=== PATIENT | male | born 1950 | race Caucasian/White ===

== ENCOUNTER → 2017-02-27 | Outpatient (CLI) | payer MEDICARE, OTHER ==
[2017-02-27 11:33] LABS: CHLORIDE,CL 107 mmol/L (98-110); SODIUM,NA 140 mmol/L (136-146)
== END ==
LOC: MW.CHFP 10:21
PROVIDERS: ATTEND Student in an Organized Health Care Education/Training Program
DX: E78.5 Hyperlipidemia, unspecified (principal); R73.9 Hyperglycemia, unspecified; I10 Essential (primary) hypertension; F32.9 Major depressive disorder, single episode, unspecified; Z72.0 Tobacco use
CPT/HCPCS: 36415; 80053; 80061; G0463

== ENCOUNTER 2018-11-06 11:20 | Emergency (ER) | payer MEDICARE, OTHER ==
--- NOTE | 2018-11-06 11:38 | EDM.PDOC ---
ED HPI GENERAL MEDICAL PROBLEM - General Chief Complaint: Upper Extremity Injury/Pain Stated Complaint: PAIN IN LEFT ARM Time Seen by Provider: 11/06/18 11:34 Source of Information: Reports: Patient History Limitations: Reports: No Limitations - History of Present Illness INITIAL COMMENTS - FREE TEXT/NARRATIVE: HISTORY AND PHYSICAL: History of present illness: Patient is a 68-year-old male who presents to the emergency room with complaints of pain to his left shoulder and arm. States that he has some pain at the cervical spine with flexion downward but has a constant pain that starts in the left scapula down the arm into his hand. Denies any injury, trauma or falls. Does have full range of motion of the shoulder. He denies any fever, chills, chest pain, shortness of breath or cough. Denies any headache, change in vision or diaphoresis. Denies any abdominal pain, nausea , vomiting, diarrhea, constipation or dysuria. He has been eating and drinking appropriately. Review of systems: As per history of present illness and below otherwise all systems reviewed and negative. Past medical history: As per history of present illness and as reviewed below otherwise noncontributory. Surgical history: As per history of present illness and as reviewed below otherwise noncontributory. Social history: See social history for further information Family history: As per history of present illness and as reviewed below otherwise noncontributory. Physical exam: General: Well-developed and well-nourished 68-year-old male. Alert and oriented. Nontoxic appearing and in no acute distress. HEENT: Atraumatic, normocephalic, pupils equal and reactive bilaterally, negative for conjunctival pallor or scleral icterus, mucous membranes moist, TMs normal bilaterally, throat clear, neck supple, nontender, trachea midline. No drooling or trismus noted. No meningeal signs. No hot potato voice noted. Lungs: Clear to auscultation, breath sounds equal bilaterally, chest nontender. Heart: S1S2, regular rate and rhythm without overt murmur Abdomen: Soft, nondistended, nontender. Negative for masses or hepatosplenomegaly. Negative for costovertebral tenderness. Pelvis: Stable nontender. Genitourinary: Deferred. Rectal: Deferred. Skin: Intact, warm, dry. No lesions or rashes noted. Extremities: Atraumatic, moves all per self, negative for cords or calf pain. Neurovascular unremarkable. Neuro: Awake, alert, oriented. Cranial nerves II through XII unremarkable. Cerebellum unremarkable. Motor and sensory unremarkable throughout. Exam nonfocal. Notes: Diagnostics: CBC, CMP, troponin, EKG, one view chest, CT cervical spine Therapeutics: Solu-Medrol Prescription: Medrol Dosepak Celebrex Flexeril Impression: Left arm pain Possible left shoulder impingement Plan: 1. Please take the medications as directed and as needed. 2. Follow-up with the orthopedic provider 3. Return to the ED as needed and as discussed. Definitive disposition and diagnosis as appropriate pending reevaluation and review of above. Left Finger-Middle Pain Score (Numeric/FACES): 1 Left Arm Pain Score (Numeric/FACES): 3 - Related Data Allergies Allergy/AdvReac Type Severity Reaction Status Date / Time No Known Allergies Allergy Verified 11/06/18 11:45 Home Meds: Home Meds Albuterol/Ipratropium [Combivent Respimat] 2 puff INH ASDIRECTED PRN 11/06/18 [ History] Aspirin [Adult Aspirin] 1 tab PO DAILY 11/06/18 [History] Desvenlafaxine Succinate [Desvenlafaxine Succinate ER] 50 mg PO DAILY 11/06/18 [ History] Fluticasone/Salmeterol [Advair 250-50 Diskus] 2 puff INH DAILY 11/06/18 [History ] Lisinopril/Hydrochlorothiazide [Lisinopril-Hctz 20-25 mg Tab] 1 tab PO DAILY [History] Montelukast [Singulair] 10 mg PO DAILY 11/06/18 [History] amLODIPine Besylate [Amlodipine Besylate] 1 tab PO DAILY 11/06/18 [History] atorvaSTATin [Lipitor] 1 tab PO DAILY 11/06/18 [History] Review of Systems - Review of Systems Review Of Systems: ROS reveals no pertinent complaints other than HPI. ED EXAM, GENERAL - Physical Exam Exam: See Below (See dictation) Course - Vital Signs Last Recorded V/S: Last Vital Signs Temp 97.8 F 11/06/18 11:56 Pulse 81 11/06/18 11:56 Resp 17 11/06/18 11:56 BP 137/69 11/06/18 11:56 Pulse Ox 96 11/06/18 11:56 - Orders/Labs/Meds Orders: Active Orders 24 hr Category Date Time Status EKG Documentation Completion [RC] STAT Care 11/06/18 11:50 Active Labs: Laboratory Tests 11/06/18 11/06/18 Range/Units 11:59 11:59 WBC 10.33 (4.0-11.0) K/uL RBC 4.96 (4.50-5.90) M/uL Hgb 14.8 (13.0-17.0) g/dL Hct 43.3 (38.0-50.0) % MCV 87.3 (80.0-98.0) fL MCH 29.8 (27.0-32.0) pg MCHC 34.2 (31.0-37.0) g/dL RDW Std Deviation 44.5 (28.0-62.0) fl RDW Coeff of Saira 14 (11.0-15.0) % Plt Count 221 (150-400) K/uL MPV 11.30 (7.40-12.00) fL Neut % (Auto) 67.1 (48.0-80.0) % Lymph % (Auto) 18.4 (16.0-40.0) % [place] % (Auto) 11.4 (0.0-15.0) % Eos % (Auto) 2.8 (0.0-7.0) % Baso % (Auto) 0.3 (0.0-1.5) % Neut # (Auto) 6.9 H (1.4-5.7) K/uL Lymph # (Auto) 1.9 (0.6-2.4) K/uL [place] # (Auto) 1.2 H (0.0-0.8) K/uL Eos # (Auto) 0.3 (0.0-0.7) K/uL Baso # (Auto) 0.0 (0.0-0.1) K/uL Nucleated RBC % 0.0 /100WBC Nucleated RBCs # 0 K/uL Sodium 139 (136-148) mmol/L Potassium 3.4 L (3.5-5.1) mmol/L Chloride 103 (98-107) mmol/L Carbon Dioxide 28.0 (21.0-32.0) mmol/L BUN 19 H (7.0-18.0) mg/dL Creatinine 1.1 (0.8-1.3) mg/dL Est Cr Clr Drug Dosing 65.17 mL/min Estimated GFR (MDRD) > 60.0 ml/min Glucose 108 H (74-106) mg/dL Calcium 9.3 (8.5-10.1) mg/dL Total Bilirubin 0.8 (0.2-1.0) mg/dL AST 22 (15-37) IU/L ALT 45 (14-63) IU/L Alkaline Phosphatase 47 (46-116) U/L Troponin I < 0.050 (0.000-0.056) ng/mL Total Protein 7.5 (6.4-8.2) g/dL Albumin 3.6 (3.4-5.0) g/dL Globulin 3.9 (2.6-4.0) g/dL Albumin/Globulin Ratio 0.9 (0.9-1.6) Meds: Medications Discontinued Medications Generic Name Dose Route Start Last Admin Trade Name Poncho PRN Reason Stop Dose Admin Methylprednisolone Sodium Succinate 125 mg 11/06/18 11:50 11/06/18 11:56 Solu-Medrol IVPUSH 11/06/18 11:51 Not Given ONETIME ONE Methylprednisolone Sodium Succinate 125 mg 11/06/18 11:53 11/06/18 12:09 Solu-Medrol IM 11/06/18 11:54 125 mg ONETIME ONE Administration Departure - Departure Time of Disposition: 12:59 Disposition: Home, Self-Care 01 Clinical Impression: Impingement syndrome, shoulder, left, Left arm pain - Discharge Information Instructions: Shoulder Impingement Syndrome Referrals: Anup Mcintosh MD [Primary Care Provider] - Forms: ED Department Discharge Additional Instructions: The following information is given to patients seen in the emergency department who are being discharged to home. This information is to outline your options for follow-up care. We provide all patients seen in our emergency department with a follow-up referral. The need for follow-up, as well as the timing and circumstances, are variable depending upon the specifics of your emergency department visit. If you don't have a primary care physician on staff, we will provide you with a referral. We always advise you to contact your personal physician following an emergency department visit to inform them of the circumstance of the visit and for follow-up with them and/or the need for any referrals to a consulting specialist. The emergency department will also refer you to a specialist when appropriate. This referral assures that you have the opportunity for follow-up care with a specialist. All of these measure are taken in an effort to provide you with optimal care, which includes your follow-up. Under all circumstances we always encourage you to contact your private physician who remains a resource for coordinating your care. When calling for follow-up care, please make the office aware that this follow-up is from your recent emergency room visit. If for any reason you are refused follow-up, please contact the [facility] Emergency Department at and asked to speak to the emergency department charge nurse. [facility] [address] [place] [id number] [address] [facility] [address] [place] [address] [address] [place] [address] 1. Please take the medications as directed and as needed. 2. Follow-up with the orthopedic provider 3. Return to the ED as needed and as discussed. - My Orders Last 24 Hours: My Active Orders 11/06/18 11:50 EKG Documentation Completion [RC] STAT - Assessment/Plan Last 24 Hours: My Active Orders 11/06/18 11:50 EKG Documentation Completion [RC] STAT
[2018-11-06] MEDS ORDERED: methylPREDNISolone Sodium Succinate 125 MG/2 ML SDV IVPUSH ONE (11:50)
[2018-11-06] MEDS ORDERED: methylPREDNISolone Sodium Succinate 125 MG/2 ML SDV IM ONE (11:53)
[2018-11-06 12:39] LABS: CHLORIDE,CL 103 mmol/L (98-107); SODIUM,NA 139 mmol/L (136-148)
--- NOTE | 2018-11-06 12:50 | CR ---
EXAMINATION: Portable chest radiograph. HISTORY: Left arm pain. FINDINGS: The trachea is midline. The cardiomediastinal silhouette is within normal limits. No pulmonary infiltrates, effusions or pneumothorax. Mild left base atelectasis. Osseous structures appear unremarkable. IMPRESSION: No acute cardiopulmonary process.
--- NOTE | 2018-11-06 13:05 | CT ---
EXAMINATION: CT cervical spine HISTORY: Left arm pain COMPARISON: None TECHNIQUE: Axial CT imaging obtained through the cervical spine without contrast. Coronal and sagittal reconstructions obtained. FINDINGS: The cervical spinal alignment is normal. The vertebral body heights appear well maintained. Mild disc space narrowing at multiple levels within the cervical spine. Uncovertebral hypertrophy is noted bilaterally from C3 to T1. There is no fracture or acute osseous abnormality. Bone mineralization is normal. Carotid artery calcifications are noted. Lung apices are clear. IMPRESSION: 1. Mild degenerative changes without acute findings noted within the cervical spine. 2. Mild carotid artery calcifications.
== END 2018-11-06 13:25 | disposition home or self-care (01) ==
LOC: MW.ED 11:20
DX: M75.42 Impingement syndrome of left shoulder (principal); Z79.899 Other long term (current) drug therapy
CPT/HCPCS: 36415; 71045; 72125; 80053; 84484; 85025; 93005; 96372; 99284; J2930; 99283

== ENCOUNTER 2020-07-20 17:47 | Emergency (ER) | payer MEDICARE, OTHER ==
[2020-07-20] MEDS ORDERED: Diphtheria,Pertussis(Acell),Tetanus Vaccine 0.5 ML Syringe IM ONE (18:01)
[2020-07-20] MEDS ORDERED: Acetaminophen/oxyCODONE 325-10 MG Tab PO ONE (18:01)
--- NOTE | 2020-07-20 18:02 | EDM.PDOC ---
ED HPI GENERAL MEDICAL PROBLEM - General Chief Complaint: Laceration Stated Complaint: LEFT HAND INJURY Time Seen by Provider: 07/20/20 17:56 Source of Information: Reports: Patient History Limitations: Reports: No Limitations - History of Present Illness INITIAL COMMENTS - FREE TEXT/NARRATIVE: HISTORY AND PHYSICAL: History of present illness: Patient is a 69-year-old female who presents to the emergency room with complaints of laceration and skin avulsion of the left index and middle finger. He states he was using a saw when his hand got in the way of the blade. He has a skin avulsion to the palmar surface of the left index finger. He has a laceration on the third left digit. He denies any other extremity involvement. He offers no systemic complaints. Unsure of his last tetanus update. Review of systems: As per history of present illness and below otherwise all systems reviewed and negative. Past medical history: As per history of present illness and as reviewed below otherwise noncontributory. Surgical history: As per history of present illness and as reviewed below otherwise noncontributory. Social history: See social history for further information Family history: As per history of present illness and as reviewed below otherwise noncontributory. Physical exam: General: Well developed and well nourished. Alert and orientated x 3. Nontoxic in appearance and in no acute distress. Vital signs are stable and have been reviewed by me. Nursing notes were reviewed. HEENT: Atraumatic, normocephalic, pupils equal and reactive bilaterally, neg ative for conjunctival pallor or scleral icterus, mucous membranes moist, TMs normal bilaterally, throat clear, neck supple, nontender, trachea midline. No drooling or trismus noted. No meningeal signs. No hot potato voice noted. Lungs: Clear to auscultation, breath sounds equal bilaterally, chest nontender. Normal work of breathing, no accessory muscles used. Heart: S1S2, regular rate and rhythm without overt murmur Abdomen: Soft, nondistended, nontender. Negative for masses or hepatosplenomegaly. Negative for costovertebral tenderness. Skin: 2.5 cm laceration across palmar surface of the left mid 3rd digit; does not appear to have tendon involvement. 3 cm skin avulsion across distal palmar surface of left index finger. There is obvious tear of the tendon, although he is able to flex and extend and DIP/MIP/PIP joint. These do not involve the nailbed. +CMS and cap refill less than 3 seconds. Otherwise skin is intact, warm, dry. No lesions or rashes noted. Hematologic: No petechiae or purpra. Mucosa appropriate color and normal nail bed color and refill. Extremities: Moves all extremities per self without difficulty or deficits, see SKIN for details. Neurovascular unremarkable. Neuro: Awake, alert, oriented. Cranial nerves II through XII unremarkable. Cerebellum unremarkable. Motor and sensory unremarkable throughout. Exam nonfocal. Psychiatric: Mood and affect are appropriate. Normal thought process. Answering questions appropriately. Notes: X-ray shows no fractures, dislocations or bony abnormalities. 1% lidocaine was used for digital block of the left second and third digits. The laceration/avulsed skin was thoroughly cleansed with chlorhexidine and irrigated with copious amounts of wound wash. The skin avulsion on the left second digit has no way of approximating any of the skin. The laceration on the third left digit received 5-0, #5 interrupted sutures. Patient tolerated well. I spoke with Dr. Rizvi, hand surgeon on-call at [facility] in [place]. He was able to view the images. He will see this patient tomorrow at 9 AM in his office. He did request that I approximate the skin avulsion area, I did inform him that that is not possible with the remaining skin that is left at the site. Bacitracin/Vaseline nonstick tube gauze dressing applied. Keflex given here. I have spoken with the patient/caregiver and discussed today's findings, in addition to providing specific details for plan of care. Reassessment at the time of disposition demonstrates that the patient is in no acute distress. The patient has remained stable throughout the entire ED visit and is without objective evidence for acute process requiring urgent intervention or hospitalization. The patient is stable for discharge, counseling was provided and we discussed in great detail signs and symptoms that would prompt them to return to the Emergency Department. Medication, follow up and supportive care measures were reviewed and discussed. Voices understanding and is agreeable to plan of care. Denies any further questions or concerns at this time. Diagnostics: Finger x-ray Therapeutics: Percocet, Keflex, Lidocaine, Wound care, bacitracin bulky non-stick dressing Prescription: Percocet, Keflex Impression: Flexor tendon injury Skin avulsion Laceration Hand Injury Plan: 1. Keep the area clean and dry. Continue to monitor for signs of infection. Please take the antibiotic as prescribed 2. Tylenol and/or ibuprofen as needed for pain management. You can use the Percocet, 1-2 tabs every 4 hours as needed. Please be aware that this medication does cause drowsiness so do not take it while driving or needing to be functioning outside of the house 3. Dr Rizvi wants to see you tomorrow morning at 9am. DO NOT EAT OR DRINK after midnight tonight. 4. Return to the ED as needed and as discussed. Definitive disposition and diagnosis as appropriate pending reevaluation and review of above. left fingers Pain Score (Numeric/FACES): 5 - Related Data Allergies Allergy/AdvReac Type Severity Reaction Status Date / Time No Known Allergies Allergy Verified 07/20/20 18:05 Home Meds: Home Meds Albuterol/Ipratropium [Combivent Respimat] 2 puff INH ASDIRECTED PRN 11/06/18 [History] Aspirin [Adult Aspirin] 1 tab PO DAILY 11/06/18 [History] Desvenlafaxine Succinate [Desvenlafaxine Succinate ER] 50 mg PO DAILY 11/06/18 [History] Fluticasone Propion/Salmeterol [Advair 250-50 Diskus] 2 puff INH DAILY 11/06/18 [History] Lisinopril/Hydrochlorothiazide [Lisinopril-Hctz 20-25 mg Tab] 1 tab PO DAILY 11/06/18 [History] Montelukast [Singulair] 10 mg PO DAILY 11/06/18 [History] amLODIPine Besylate [Amlodipine Besylate] 1 tab PO DAILY 11/06/18 [History] atorvaSTATin [Lipitor] 1 tab PO DAILY 11/06/18 [History] Acetaminophen/oxyCODONE [Percocet 325-5 MG] 1 each PO Q4HR PRN #20 tab 07/20/20 [Rx] cephALEXin [Keflex] 1 tab PO TID 7 Days #21 cap 07/20/20 [Rx] Past Medical History Cardiovascular History: Reports: High Cholesterol, Hypertension Other Respiratory History: flare up of breathing problems with allergies in the fall and spring Social & Family History - Family History Family Medical History: Noncontributory ED ROS GENERAL - Review of Systems Review Of Systems: Comprehensive ROS is negative, except as noted in HPI. ED EXAM, SKIN/RASH Exam: See Below (See dictation) ED SKIN PROCEDURES - Laceration/Wound Repair Left 2nd digit Appearance: Subcutaneous, Irregular Distal NVT: Neuro & Vascular Intact, Other (Flexor tendon injury) Anesthetic Type: Digital Local Anesthesia - Lidocaine (Xylocaine): 1% Plain Local Anesthetic Volume: 4cc Skin Prep: Chlorhexidine (Hibiciens), Saline, Sterile Drape Saline Irrigation (cc's): 500 (x2) Exploration/Debridement/Repair: Wound Explored, In a Bloodless Field, Explored to Base, No Foreign Material Found, Other (Unable to close due to skin avulsion) Closed with: Other (Unable to close; bacitracin bulky gauze dressing/tube gauze) Lac/Wound length In cm: 3 (in diameter) Drain Placement: No Sterile Dressing Applied: Provider Tetanus Status Addressed: Yes Complications: No Progress/Comments: Spoke with Dr Rizvi about this patient for recommendations. Unable to approximate any of the avulsed tissue. He has follow up with Dmitri tomorrow morning at 9am. Left 3rd digit Appearance: Subcutaneous, Irregular Distal NVT: Neuro & Vascular Intact, No Tendon Injury Anesthetic Type: Digital Local Anesthetic Volume: 4cc Skin Prep: Chlorhexidine (Hibiciens), Saline, Sterile Drape Saline Irrigation (cc's): 500 (x 2) Exploration/Debridement/Repair: Wound Explored, In a Bloodless Field, Explored to Base, No Foreign Material Found Closed with: Sutures Lac/Wound length In cm: 2.5 Suture Size: 4-0 # of Sutures: 5 Suture Type: Nylon, Interrupted, Simple Drain Placement: No Sterile Dressing Applied: Provider Tetanus Status Addressed: Yes Complications: No Course - Vital Signs Last Recorded V/S: Last Vital Signs Temp Pulse 99 07/20/20 17:57 Resp 20 07/20/20 17:57 BP 135/70 07/20/20 17:57 Pulse Ox 97 07/20/20 17:57 - Orders/Labs/Meds Orders: Active Orders 24 hr Category Date Time Status Communication Order [RC] STAT Care 07/20/20 18:44 Ordered Vaccines to be Administered [RC] PER UNIT ROUTINE Care 07/20/20 18:01 Active Meds: Medications Discontinued Medications Generic Name Dose Route Start Last Admin Trade Name Poncho PRN Reason Stop Dose Admin Bacitracin 1 dose 07/20/20 19:26 07/20/20 19:32 Bacitracin Oint 1 Gm TOP 07/20/20 19:27 1 dose ONETIME ONE Administration Bacitracin Confirm 07/20/20 19:26 Bacitracin Oint 1 Gm Administered 07/20/20 19:27 Dose 1 dose .ROUTE .STK-MED ONE Cefazolin Sodium 1 gm 07/20/20 18:34 Ancef IM 07/20/20 18:35 ONETIME ONE Cephalexin 500 mg 07/20/20 19:08 07/20/20 19:35 Keflex PO 07/20/20 19:09 500 mg ONETIME ONE Administration Diphtheria/Tetanus/Acell Pertussis 0.5 ml 07/20/20 18:01 07/20/20 18:23 Adacel IM 07/20/20 18:02 0.5 ml .ONCE ONE Administration Lidocaine HCl 5 ml 07/20/20 18:01 07/20/20 18:23 Xylocaine-Mpf 1% INJECT 07/20/20 18:02 5 ml ONETIME ONE Administration Lidocaine HCl 5 ml 07/20/20 18:27 07/20/20 18:28 Xylocaine-Mpf 1% INJECT 07/20/20 18:28 5 ml ONETIME ONE Administration Lidocaine HCl Confirm 07/20/20 18:25 07/20/20 18:30 Xylocaine-Mpf 1% Administered 07/20/20 18:26 Not Given Dose 5 ml .ROUTE .STK-MED ONE Oxycodone/Acetaminophen 1 tab 07/20/20 18:01 07/20/20 18:22 Percocet 325-10 Mg PO 07/20/20 18:02 1 tab ONETIME ONE Administration Departure - Departure Time of Disposition: 19:57 Disposition: Home, Self-Care 01 Clinical Impression: Skin avulsion, Laceration Finger injury Qualifiers: Encounter type: initial encounter Laterality: left Qualified Code(s): S69.92XA - Unspecified injury of left wrist, hand and finger(s), initial encounter Injury of flexor tendon of left hand Qualifiers: Encounter type: initial encounter Qualified Code(s): S66.802A - Unspecified injury of other specified muscles, fascia and tendons at wrist and hand level, left hand, initial encounter - Discharge Information Prescriptions: cephALEXin [Keflex] 1 tab PO TID 7 Days #21 cap Acetaminophen/oxyCODONE [Percocet 325-5 MG] 1 each PO Q4HR PRN #20 tab PRN Reason: Pain Instructions: Laceration Care, Adult, [id number], Pain Medicine Instructions, [id number], Sutures, Vanzant, or Adhesive Wound Closure, [id number], Nail Bed Injury, [id number] Referrals: Anup Mcintosh MD [Primary Care Provider] - Forms: ED Department Discharge Additional Instructions: The following information is given to patients seen in the emergency department who are being discharged to home. This information is to outline your options for follow-up care. We provide all patients seen in our emergency department with a follow-up referral. The need for follow-up, as well as the timing and circumstances, are variable depending upon the specifics of your emergency department visit. If you don't have a primary care physician on staff, we will provide you with a referral. We always advise you to contact your personal physician following an emergency department visit to inform them of the circumstance of the visit and for follow-up with them and/or the need for any referrals to a consulting specialist. The emergency department will also refer you to a specialist when appropriate. This referral assures that you have the opportunity for follow-up care with a specialist. All of these measure are taken in an effort to provide you with optimal care, which includes your follow-up. Under all circumstances we always encourage you to contact your private physician who remains a resource for coordinating your care. When calling for follow-up care, please make the office aware that this follow-up is from your recent emergency room visit. If for any reason you are refused follow-up, please contact the [facility] Emergency Department at and asked to speak to the emergency department charge nurse. Dr Rizvi (Hand Surgeon) [address] (located on the 3rd Floor) [place], [place] [address] Thank you for choosing the [facility] emergency department in [place] for your medical needs today. It was a pleasure caring for you. Today you were seen in the emergency department for finger injury. 1. Keep the area clean and dry. Continue to monitor for signs of infection. Please take the antibiotic as prescribed 2. Tylenol and/or ibuprofen as needed for pain management. You can use the Percocet, 1-2 tabs every 4 hours as needed. Please be aware that this medication does cause drowsiness so do not take it while driving or needing to be functioning outside of the house 3. Dr Rizvi wants to see you tomorrow morning at 9am in [place]. DO NOT EAT OR DRINK after midnight tonight. 4. Return to the ED as needed and as discussed. Sepsis Event Note (ED) - Evaluation Sepsis Screening Result: No Definite Risk - Focused Exam Vital Signs: Vital Signs Pulse Resp BP Pulse Ox 07/20/20 17:57 99 20 135/70 97 - My Orders Last 24 Hours: My Active Orders 07/20/20 18:01 Vaccines to be Administered [RC] PER UNIT ROUTINE 07/20/20 18:44 Communication Order [RC] STAT - Assessment/Plan Last 24 Hours: My Active Orders 07/20/20 18:01 Vaccines to be Administered [RC] PER UNIT ROUTINE 07/20/20 18:44 Communication Order [RC] STAT
[2020-07-20] MEDS ORDERED: ceFAZolin 1 GM Vial IM ONE (18:34)
--- NOTE | 2020-07-20 18:49 | CR ---
INDICATION: Laceration to 2nd and 3rd fingers left hand from table saw TECHNIQUE: Finger radiograph 3 views left 2nd COMPARISON: None FINDINGS: Bone: No acute fractures or aggressive bone lesions are identified. A portion of the 4th proximal phalanx is obscured by a metallic ring. Joint: The metacarpophalangeal and interphalangeal joints are normal in appearance. Soft tissue: Large soft tissue laceration is seen along the palmar aspect of the distal 2nd digit. No radiopaque foreign bodies are seen. IMPRESSION: 1. No acute osseous injuries or abnormalities are noted. Dictated by Baudilio Hidalgo MD @ 07/20/2020 6:47:43 PM Dictated by: Baudilio Hidalgo MD @ 07/20/2020 18:47:48 (Electronically Signed)
[2020-07-20] MEDS ORDERED: Cephalexin 500 MG Cap PO ONE (19:08)
[2020-07-20] MEDS ORDERED: Bacitracin Oint 1 GM U/D Packet ONE (19:26)
[2020-07-20] MEDS ORDERED: Bacitracin Oint 1 GM U/D Packet TOP ONE (19:26)
== END 2020-07-20 19:52 | disposition home or self-care (01) ==
LOC: MW.ED 17:47
DX: S56.122A Laceration of flexor muscle, fascia and tendon of left index finger at forearm level, initial encounter (principal); S61.213A Laceration without foreign body of left middle finger without damage to nail, initial encounter; E78.00 Pure hypercholesterolemia, unspecified; I10 Essential (primary) hypertension; Z79.82 Long term (current) use of aspirin; Z23 Encounter for immunization; W27.0XXA Contact with workbench tool, initial encounter
CPT/HCPCS: 12002; 73140; 90471; 90715; 99282; A9270; J2001; 12001; 64450; 99283

== ENCOUNTER 2023-11-09 11:03 | Emergency (ER) | payer MEDICARE, OTHER ==
[2023-11-09 11:44] LABS: BASOPHILS ABSOLUTE AUTO 0.04 K/uL (0.00-0.20); BASOPHILS PERCENT AUTO 0.5 % (0.0-1.0); EOSINOPHILS ABSOLUTE AUTO 0.34 K/uL (0.00-0.45); EOSINOPHILS PERCENT AUTO 4.4 % (0.0-6.0); HEMATOCRIT 39.8 % (42.0-52.0); HEMOGLOBIN 13.5 g/dL (14.0-18.0); IMMATURE GRAN ABSOLUTE AUTO 0.04 K/uL (0.00-0.05); IMMATURE GRAN PERCENT AUTO 0.5 % (0.0-0.4); LYMPHOCYTES ABSOLUTE AUTO 1.38 K/uL (1.00-4.80); LYMPHOCYTES PERCENT AUTO 17.7 % (24.0-44.0); MEAN CORPUSCULAR HEMOGLOBIN 30.7 pg (28.0-32.0); MEAN CORPUSCULAR HGB CONC 33.9 g/dL (32.0-36.0); MEAN CORPUSCULAR VOLUME 90.5 fL (83.0-99.0); MEAN PLATELET VOLUME 11.6 fL (9.4-12.4); MONOCYTES ABSOLUTE AUTO 0.78 K/uL (0.00-0.80); NEUTROPHILS ABSOLUTE AUTO 5.22 K/uL (1.80-7.70); NEUTROPHILS PERCENT AUTO 66.9 % (41.0-71.0); PLATELET COUNT,PLT 161 K/uL (150-400)
[2023-11-09 11:57] LABS: INR 1.07 (0.86-1.11)
[2023-11-09 12:03] LABS: A/G RATIO 0.9 (0.9-1.6); ALBUMIN 3.2 g/dL (3.4-5.0); BILIRUBIN TOTAL 1.2 mg/dL (0.2-1.0); CALCIUM 9.2 mg/dL (8.5-10.1); CARBON DIOXIDE,CO2 30.7 mmol/L (21.0-32.0); CREATININE 1.1 mg/dL (0.8-1.3); EST CRCL DRUG DOSING (CG) 64.65 mL/min; POTASSIUM,K 3.7 mmol/L (3.5-5.1); PROTEIN TOTAL,TP 6.8 g/dL (6.4-8.2)
== END 2023-11-09 12:45 | disposition home or self-care (01) ==
LOC: MW.ED 11:03
DX: R60.9 Edema, unspecified (principal); Z95.0 Presence of cardiac pacemaker; I10 Essential (primary) hypertension; E78.00 Pure hypercholesterolemia, unspecified; E66.9 Obesity, unspecified; Z68.31 Body mass index [BMI] 31.0-31.9, adult; Z79.899 Other long term (current) drug therapy; Z79.82 Long term (current) use of aspirin
CPT/HCPCS: 36415; 80053; 85025; 85610; 85730; 93971-26-LT; 93971-LT; 99284